=== PATIENT | female | born 1970 | race African-American/Black ===

== ENCOUNTER 2022-12-16 05:11 | Day surgery (SDC) | payer OTHER ==
[2022-12-12 12:34] VITALS: BMI 31.8
[2022-12-16] MEDS ORDERED: BUPIVACAINE HCL/PF 0.75% 10 ML VIAL ONE (07:50)
[2022-12-16] MEDS ORDERED: LIDOCAINE HCL 1% PRESERVATIVE FREE - 30ML VIAL IJ ONE (13:06)
[2022-12-16] MEDS ORDERED: BUPIVACAINE HCL/PF 0.75% 10 ML VIAL NR ONE (13:10)
[2022-12-16 14:03] VITALS: BP 126/82
[2022-12-16 14:04] VITALS: PULSE 62; RESP 20; TEMP 97.3
[2022-12-16] MEDS ORDERED: ACETAMINOPHEN 500 MG TABLET (FP) PO PRN (15:22)
== END 2022-12-16 14:11 | disposition home or self-care (01) ==
LOC: JASU-SURG 05:11
PROVIDERS: ATTEND Pain Medicine Pain Medicine
PROC: 3E0T33Z Introduction of Anti-inflammatory into Peripheral Nerves and Plexi, Percutaneous Approach (ICD-10-PCS; 2022-12-16)
PROC: 3E0T3BZ Introduction of Anesthetic Agent into Peripheral Nerves and Plexi, Percutaneous Approach (ICD-10-PCS; principal; 2022-12-16 13:30)
DX: M47.816 Spondylosis without myelopathy or radiculopathy, lumbar region (principal)
CPT/HCPCS: 76000-TC-FY; 81025

== ENCOUNTER 2023-02-10 04:31 | Day surgery (SDC) | payer OTHER ==
[2023-02-09 11:18] VITALS: BMI 32.2
[2023-02-10] MEDS ORDERED: BUPIVACAINE HCL/PF 0.75% 10 ML VIAL ONE (07:16)
[2023-02-10] MEDS ORDERED: LIDOCAINE HCL/PF 1% SDV 5ML VIAL ONE (07:16)
[2023-02-10 10:54] VITALS: BP 131/80
[2023-02-10] MEDS ORDERED: BUPIVACAINE HCL/PF 0.75% 10 ML VIAL NR ONE (12:17)
[2023-02-10] MEDS ORDERED: LIDOCAINE HCL 1% PRESERVATIVE FREE - 30ML VIAL IJ ONE (12:17)
[2023-02-10 12:38] VITALS: PULSE 62; RESP 16; TEMP 98.2
[2023-02-10] MEDS ORDERED: ACETAMINOPHEN 500 MG TABLET (FP) PO PRN (15:25)
== END 2023-02-10 12:53 | disposition home or self-care (01) ==
LOC: JASU-SURG 04:31
PROVIDERS: ATTEND Pain Medicine Pain Medicine
PROC: 3E0T33Z Introduction of Anti-inflammatory into Peripheral Nerves and Plexi, Percutaneous Approach (ICD-10-PCS; 2023-02-10)
PROC: 3E0T3BZ Introduction of Anesthetic Agent into Peripheral Nerves and Plexi, Percutaneous Approach (ICD-10-PCS; principal; 2023-02-10 12:30)
DX: M47.816 Spondylosis without myelopathy or radiculopathy, lumbar region (principal)
CPT/HCPCS: 76000-TC-FY

== ENCOUNTER 2023-03-13 04:07 | Day surgery (SDC) | payer OTHER ==
[2023-03-10 14:20] VITALS: BMI 31.4
[~2023-03-13 04:07] MED LIST: BUPIVACAINE HCL/PF 0.75% 10 ML VIAL NR ONE; DEXAMETHASONE SOD PHOSPHATE 10 MG/1 ML VIAL IVPUSH ONE; LIDOCAINE 1% P/F 10 MG/ML VIAL INF ONE; LIDOCAINE HCL/PF 2% SDV 5ML VIAL INF ONE
[2023-03-13] MEDS ORDERED: BUPIVACAINE HCL/PF 0.75% 10 ML VIAL ONE (07:17)
[2023-03-13] MEDS ORDERED: LIDOCAINE HCL/PF 2% SDV 5ML VIAL ONE (07:17)
[2023-03-13] MEDS ORDERED: DEXAMETHASONE SOD PHOSPHATE 10 MG/1 ML VIAL ONE (07:17)
[2023-03-13] MEDS ORDERED: LIDOCAINE HCL/PF 1% SDV 5ML VIAL ONE (07:17)
[2023-03-13] MEDS ORDERED: LIDOCAINE 1% P/F 10 MG/ML VIAL INF ONE (10:41)
[2023-03-13] MEDS ORDERED: DEXAMETHASONE SOD PHOSPHATE 10 MG/1 ML VIAL IVPUSH ONE (10:41)
[2023-03-13] MEDS ORDERED: BUPIVACAINE HCL/PF 0.75% 10 ML VIAL NR ONE (10:41)
[2023-03-13] MEDS ORDERED: LIDOCAINE HCL/PF 2% SDV 5ML VIAL INF ONE (10:41)
[2023-03-13 11:22] VITALS: BP 122/85; PULSE 74; RESP 18; TEMP 97.2
[2023-03-13] MEDS ORDERED: ACETAMINOPHEN 500 MG TABLET (FP) PO PRN (12:46)
== END 2023-03-13 12:20 | disposition home or self-care (01) ==
LOC: JASU-SURG 04:07
PROVIDERS: ATTEND Pain Medicine Pain Medicine
PROC: 015B3ZZ Destruction of Lumbar Nerve, Percutaneous Approach (ICD-10-PCS; principal; 2023-03-13 11:15)
DX: M47.816 Spondylosis without myelopathy or radiculopathy, lumbar region (principal)
CPT/HCPCS: 76000-TC-FY; J1100